=== PATIENT | female | born 1990 | race African-American/Black ===

== ENCOUNTER 2020-08-10 12:34 | Emergency (ER) | payer OTHER ==
[2020-08-10] MEDS ORDERED: cefTRIAXone\\ROCEPHIN 500 MG VIAL ONE (14:23)
[2020-08-10] MEDS ORDERED: Lidocaine 1% (PF) 30 ML VIAL ONE (14:23)
[2020-08-10 14:43] LABS: Bilirubin Negative (Negative); Blood, Urine Trace (Negative); Glucose, Urine (Dipstick) Negative (Negative); Ketone, Urine Negative (Negative); Leukocyte Trace (Negative); Nitrite Positive (Negative); Protein, Urine (Dipstick) Negative (Neg-Trace)
[2020-08-10 14:45] LABS: Clarity Clear (Clear)
[2020-08-10 14:50] LABS: RBC/HPF 0-3 HPF (0-3); Squamous Epithelial 0-3 HPF (0-3)
[2020-08-10 14:52] LABS: Pregnancy Test - Urine (BHCG) Negative (Negative); Pregu Control Background? CLEAR/WHITE (CLR/WHITE); Pregu Control Bar Appear? YES (CONTROL BAR)
[2020-08-10 14:54] LABS: Bacteria/HPF 1+ HPF (None Seen)
[2020-08-12 21:39] LABS: Chlamydia by PCR Not Detected (NotDetected); GC by PCR DETECTED (NotDetected)
== END 2020-08-10 15:19 | disposition home or self-care (01) ==
LOC: ERS 12:34
DX: N73.9 Female pelvic inflammatory disease, unspecified (principal); F17.210 Nicotine dependence, cigarettes, uncomplicated
CPT/HCPCS: 81003; 81015; 81025; 87480; 87491; 87510; 87591; 87660; 96372; 99283; J0696; J2001

== ENCOUNTER 2020-10-09 01:21 | Emergency (ER) | payer OTHER | END 2020-10-09 03:10 | disposition home or self-care (01) | LOC: ERS 01:21 | DX: S06.0X0A Concussion without loss of consciousness, initial encounter (principal); Z87.891 Personal history of nicotine dependence; V49.40XA Driver injured in collision with unspecified motor vehicles in traffic accident, initial encounter | CPT/HCPCS: 99283 ==

== ENCOUNTER 2022-06-08 09:03 | Emergency (ER) | payer OTHER | END 2022-06-08 09:50 | disposition home or self-care (01) | LOC: ERS 09:03 | DX: K04.7 Periapical abscess without sinus (principal); F17.210 Nicotine dependence, cigarettes, uncomplicated | CPT/HCPCS: 99282 ==